=== PATIENT | female | born 1975 | race Caucasian/White ===

== ENCOUNTER 2020-12-19 20:01 | Emergency (ER) | payer BC ==
[2020-12-19 20:36] LABS: #Basophils 0.1 thou/uL (0.0-0.2); #Eosinphils 0.2 thou/uL (0.0-0.7); #Lymphocytes 3.3 thou/uL (1.20-3.40); #Monocytes 0.4 thou/uL (0.11-0.59); #Neutrophils 3.3 thou/uL (1.40-6.50); %Basophils 1.7 % (0.0-1.0); %Eosinophils 2.7 % (0.0-10.0); %Lymphocytes 44.4 % (21.0-51.0); %Monocytes 5.7 % (0.0-10.0); %Neutrophils 45.4 % (42.0-75.0); Mean Corpuscular HGB CONC 33.9 g/dL (32.0-36.0); Mean Corpuscular Hemoglobin 30.9 pg (27.0-31.0); Mean Corpuscular Volume 91.2 fL (78.0-98.0); Mean Platelet Volume 6.9 fL (7.4-10.4); Platelet Count 331 thou/uL (130-400); RBC Distribution Width 11.8 % (11.5-14.5); Red Blood Cell (RBC) Count 4.54 mill/uL (4.20-5.40); White Blood Cell (WBC) Count 7.3 thou/uL (4.8-10.8)
== END 2020-12-19 22:02 | disposition home or self-care (01) ==
LOC: ERS 20:01
DX: N93.8 Other specified abnormal uterine and vaginal bleeding (principal); Z79.899 Other long term (current) drug therapy; E03.9 Hypothyroidism, unspecified
CPT/HCPCS: 36415; 85025; 86850; 86900; 86901; 99284

== ENCOUNTER 2021-07-12 11:36 | Inpatient (IN) | payer BC ==
[2021-07-12 12:26] LABS: #Basophils 0.1 thou/uL (0.0-0.2); #Eosinphils 0.1 thou/uL (0.0-0.7); #Lymphocytes 1.9 thou/uL (1.20-3.40); #Monocytes 0.5 thou/uL (0.11-0.59); #Neutrophils 3.8 thou/uL (1.40-6.50); %Eosinophils 2.2 % (0.0-10.0); %Lymphocytes 29.5 % (21.0-51.0); %Monocytes 7.4 % (0.0-10.0); %Neutrophils 59.9 % (42.0-75.0); Hemoglobin 13.9 g/dL (12.0-16.0); Mean Corpuscular HGB CONC 35.8 g/dL (32.0-36.0); Mean Corpuscular Hemoglobin 32.8 pg (27.0-31.0); Mean Corpuscular Volume 91.6 fL (78.0-98.0); Mean Platelet Volume 7.2 fL (7.4-10.4); Platelet Count 337 thou/uL (130-400); RBC Distribution Width 11.3 % (11.5-14.5); Red Blood Cell (RBC) Count 4.26 mill/uL (4.20-5.40); White Blood Cell (WBC) Count 6.4 thou/uL (4.8-10.8)
[2021-07-12 12:46] LABS: ALT (SGPT) 47 U/L (8-55); AST (SGOT) 42 U/L (5-34); Albumin 4.2 g/dL (3.5-5.0); Alkaline Phosphatase 44 U/L (40-110); Anion Gap 13 mmol/L (10-20); BUN (Urea Nitrogen) 14 mg/dL (7.0-18.7); Bilirubin, Total 0.5 mg/dL (0.2-1.2); Calc. Creatinine Clearance 0 mL/min (70-130); Calcium 9.2 mg/dL (7.8-10.44); Carbon Dioxide 23 mmol/L (22-29); Chloride 106 mmol/L (98-107); Globulin 2.9 g/dL (2.4-3.5); Glucose 93 mg/dL (70-105); Potassium 4.3 mmol/L (3.5-5.1); Protein, Total 7.1 g/dL (6.0-8.3); Sodium 138 mmol/L (136-145)
[2021-07-12] MEDS ORDERED: ADMIXTURE FEE CHEMO IVPB SCH (15:15)
[2021-07-12] MEDS ORDERED: OCTAGAM IVPB SCH (15:15)
[2021-07-12] MEDS ORDERED: Acetaminophen 325 MG TAB PO PRN (15:31)
[2021-07-12 18:12] VITALS: BMI 33.0
[2021-07-12] MEDS: traMADol HCl 50 MG TAB PO SCH (18:28)
[2021-07-12] MEDS: Enoxaparin Sodium 40 MG/0.4 ML SYRINGE SC SCH (20:03)
[2021-07-12] MEDS: Ibuprofen 600 MG TAB PO PRN (22:29)
[2021-07-12 22:41] LABS: SARS-CoV-2 PCR by NAA Not Detected (NotDetected)
[2021-07-13 05:48] LABS: #Eosinphils 0.2 thou/uL (0.0-0.7); #Lymphocytes 1.4 thou/uL (1.20-3.40); #Monocytes 0.3 thou/uL (0.11-0.59); #Neutrophils 2.9 thou/uL (1.40-6.50); %Lymphocytes 28.7 % (21.0-51.0); %Monocytes 6.2 % (0.0-10.0); %Neutrophils 59.1 % (42.0-75.0); Hemoglobin 13.2 g/dL (12.0-16.0); Mean Corpuscular HGB CONC 37.5 g/dL (32.0-36.0); Mean Corpuscular Hemoglobin 34.3 pg (27.0-31.0); Mean Corpuscular Volume 91.6 fL (78.0-98.0); Mean Platelet Volume 6.7 fL (7.4-10.4); Platelet Count 273 thou/uL (130-400); RBC Distribution Width 11.3 % (11.5-14.5); Red Blood Cell (RBC) Count 3.84 mill/uL (4.20-5.40); White Blood Cell (WBC) Count 4.9 thou/uL (4.8-10.8)
[2021-07-13] MEDS ORDERED: ALPRAZolam 0.25 MG TAB PO PRN (06:03)
[2021-07-13 06:07] LABS: ALT (SGPT) 42 U/L (8-55); AST (SGOT) 32 U/L (5-34); Albumin 3.6 g/dL (3.5-5.0); Alkaline Phosphatase 38 U/L (40-110); Anion Gap 10 mmol/L (10-20); BUN (Urea Nitrogen) 10 mg/dL (7.0-18.7); Bilirubin, Total 0.6 mg/dL (0.2-1.2); Calc. Creatinine Clearance 119 mL/min (70-130); Calcium 9.1 mg/dL (7.8-10.44); Carbon Dioxide 26 mmol/L (22-29); Chloride 104 mmol/L (98-107); Globulin 4.4 g/dL (2.4-3.5); Glucose 98 mg/dL (70-105); Potassium 4.3 mmol/L (3.5-5.1); Sodium 136 mmol/L (136-145)
[2021-07-13] MEDS: Valsartan 80 MG TAB PO SCH (08:08)
[2021-07-13] MEDS: traMADol HCl 50 MG TAB PO SCH ×2 (08:09→20:32)
[2021-07-13] MEDS: Hydrochlorothiazide 25 MG TAB PO SCH (08:09)
[2021-07-13] MEDS: Ibuprofen 600 MG TAB PO PRN (08:10)
[2021-07-13] MEDS ORDERED: Thyroid 60 MG TAB PO SCH (09:00)
[2021-07-13] MEDS ORDERED: FLU VACC QS2021-22(6MOS UP)/PF 60 MCG/0.5 ML SYRINGE IM ONE (09:00)
[2021-07-13] MEDS ORDERED: Magnevist 469MG/ML 20 ML VIAL ONE (10:00)
[2021-07-13] MEDS: Gabapentin 100 MG CAP PO SCH ×2 (14:38→20:33)
[2021-07-13] MEDS: OCTAGAM 10% 20 GM, OCTAGAM 10% 10 GM in Premix Bag 1 BAG IVPB SCH (17:34)
[2021-07-13] MEDS: Enoxaparin Sodium 40 MG/0.4 ML SYRINGE SC SCH (20:31)
[2021-07-13] MEDS: Ibuprofen 600 MG TAB PO SCH (20:33)
[2021-07-14] MEDS ORDERED: Ibuprofen 200 MG TAB PO SCH (02:45)
[2021-07-14] MEDS: Thyroid 60 MG TAB PO SCH (05:10)
[2021-07-14] MEDS: Gabapentin 100 MG CAP PO SCH ×2 (08:22→14:20)
[2021-07-14] MEDS: Valsartan 80 MG TAB PO SCH (08:22)
[2021-07-14] MEDS: traMADol HCl 50 MG TAB PO SCH ×2 (08:26→20:27)
[2021-07-14] MEDS: Hydrochlorothiazide 25 MG TAB PO SCH (08:26)
[2021-07-14] MEDS: Ibuprofen 600 MG TAB PO SCH ×2 (08:37→20:29)
[2021-07-14] MEDS ORDERED: Magnevist 469MG/ML 20 ML VIAL ONE (10:15)
[2021-07-14] MEDS ORDERED: hydrALAZINE 20 MG/ML VIAL SLOW IVP PRN (15:31)
[2021-07-14] MEDS: OCTAGAM 10% 20 GM, OCTAGAM 10% 10 GM in Premix Bag 1 BAG IVPB SCH (17:16)
[2021-07-14] MEDS: HYDROcodone/Acetaminophen 5/325 mg Tablet PO PRN ×2 (17:55→23:48)
[2021-07-14] MEDS ORDERED: Gabapentin 100 MG CAP PO SCH (18:00)
[2021-07-14] MEDS ORDERED: Gabapentin 300 MG CAP PO SCH (18:00)
[2021-07-14] MEDS: Enoxaparin Sodium 40 MG/0.4 ML SYRINGE SC SCH (20:27)
[2021-07-14] MEDS: Gabapentin 300 MG CAP PO SCH (20:30)
[2021-07-15] MEDS: HYDROcodone/Acetaminophen 5/325 mg Tablet PO PRN ×2 (05:57→12:06)
[2021-07-15] MEDS: Thyroid 60 MG TAB PO SCH (05:58)
[2021-07-15 07:46] VITALS: BP 142/94; TEMP 98
[2021-07-15] MEDS: Ibuprofen 600 MG TAB PO SCH (08:39)
[2021-07-15] MEDS: Valsartan 80 MG TAB PO SCH (08:40)
[2021-07-15] MEDS: traMADol HCl 50 MG TAB PO SCH (08:40)
[2021-07-15] MEDS: Hydrochlorothiazide 25 MG TAB PO SCH (08:40)
[2021-07-15] MEDS: Gabapentin 300 MG CAP PO SCH ×2 (08:41→12:53)
[2021-07-17 12:38] LABS: Lyme IgG/IgM AB <0.91 ISR (0.00-0.90)
== END 2021-07-15 13:02 | disposition home or self-care (01) | DRG 60 ==
LOC: ERS 11:36 → 3SE 16:01 → OBSVTOIN 07-13 17:47
PROVIDERS: ADMIT Family Medicine; ATTEND Family Medicine
PROC: 30233S1 Transfusion of Nonautologous Globulin into Peripheral Vein, Percutaneous Approach (ICD-10-PCS; principal; 2021-07-12)
DX: G35 Multiple sclerosis (principal); Z20.822 Contact with and (suspected) exposure to COVID-19; I10 Essential (primary) hypertension; E03.9 Hypothyroidism, unspecified; F41.9 Anxiety disorder, unspecified; Z28.21 Immunization not carried out because of patient refusal; Z79.899 Other long term (current) drug therapy; Z79.890 Hormone replacement therapy; Z82.49 Family history of ischemic heart disease and other diseases of the circulatory system; Z86.16 Personal history of COVID-19; Z87.891 Personal history of nicotine dependence
CPT/HCPCS: 36415; 70553; 72158; 80053; 85025; 86618; 93005; 94760; 96365; 96372; A9579; G0378; J0360; J1568; J1650; U0003; U0005

== ENCOUNTER 2024-07-27 17:40 | Inpatient (IN) | payer BC ==
[2024-07-27] MEDS ORDERED: Ondansetron ODT 4 MG TAB PO PRN (20:47)
[2024-07-27] MEDS ORDERED: Acetaminophen 650 MG Suppository PR PRN (20:47)
[2024-07-27] MEDS ORDERED: Ondansetron PF 4 MG/2 ML Vial IVP PRN (20:47)
[2024-07-27 21:36] LABS: #Basophils Less than 0.03 10x3/uL (0.0-0.2); #Eosinophils Less than 0.03 10x3/uL (0.0-0.7); %Basophils 0.2 % (0.0-1.0); %Monocytes 0.4 % (0.0-10.0); %Neutrophils 91.5 % (42.0-75.0); Hematocrit 39.2 % (36.0-47.0); Hemoglobin 13.9 g/dL (12.0-16.0); Mean Corpuscular HGB CONC 35.5 g/dL (32.0-36.0); Mean Corpuscular Hemoglobin 32.3 pg (27.0-31.0); Mean Platelet Volume 8.8 fL (7.4-10.4); Platelet Count 354 10x3/uL (130-400); RBC Distribution Width 12.4 % (11.5-14.5); Red Blood Cell (RBC) Count 4.31 mill/uL (4.20-5.40)
[2024-07-27 21:51] LABS: ALT (SGPT) 28 U/L (8-55); AST (SGOT) 26 U/L (5-34); Albumin 4.3 g/dL (3.5-5.0); Alkaline Phosphatase 39 U/L (40-110); Anion Gap 17 mmol/L (10-20); BUN (Urea Nitrogen) 16 mg/dL (9.8-20.1); Bilirubin, Total 1.1 mg/dL (0.2-1.2); Calc. Creatinine Clearance 99 mL/min (70-130); Calcium 9.5 mg/dL (7.8-10.44); Carbon Dioxide 23 mmol/L (22-29); Chloride 100 mmol/L (98-107); Estimated GFR 84; Globulin 3.6 g/dL (2.4-3.5); Glucose 149 mg/dL (70-105); Potassium 3.6 mmol/L (3.5-5.1); Protein, Total 7.9 g/dL (6.0-8.3); Sodium 136 mmol/L (136-145)
[2024-07-27] MEDS: Famotidine 20 MG TAB PO SCH (22:03)
[2024-07-27] MEDS: Dexamethasone 4 mg/ml Vial SLOW IVP SCH (22:03)
[2024-07-27] MEDS: ALPRAZolam 0.25 MG TAB PO PRN (22:45)
[2024-07-27] MEDS: PROGESTERONE PO SCH (23:21)
[2024-07-28] MEDS: Famotidine/PF 20 mg/2ml Vial SLOW IVP SCH (00:30)
[2024-07-28] MEDS: Acetaminophen 325 MG TAB PO SCH (00:30)
[2024-07-28 04:01] LABS: Anion Gap 16 mmol/L (10-20); BUN (Urea Nitrogen) 15 mg/dL (9.8-20.1); Calc. Creatinine Clearance 103 mL/min (70-130); Carbon Dioxide 23 mmol/L (22-29); Chloride 100 mmol/L (98-107); Estimated GFR 88; Glucose 151 mg/dL (70-105); Potassium 3.6 mmol/L (3.5-5.1); Sodium 135 mmol/L (136-145)
[2024-07-28] MEDS: Enoxaparin 40 MG (0.4 mL) SYRINGE SC SCH (10:53)
[2024-07-28] MEDS: Thyroid 60 MG TAB PO SCH (10:55)
[2024-07-28] MEDS: IMMUNE GLOBULIN 40 GM/400 ML IVPB SCH (14:53)
[2024-07-28 15:35] VITALS: BMI 30.1
[2024-07-28] MEDS: IMMUNE GLOBULIN 20 GM/200 ML IVPB SCH (16:14)
[2024-07-28] MEDS: [UNRECOGNIZED DRUG - MIXTURE] PO SCH (22:32)
[2024-07-29 04:32] LABS: Mean Corpuscular Hemoglobin 32.6 pg (27.0-31.0)
[2024-07-29 04:50] LABS: Anion Gap 13 mmol/L (10-20); BUN (Urea Nitrogen) 24 mg/dL (9.8-20.1); Calc. Creatinine Clearance 97 mL/min (70-130); Calcium 8.5 mg/dL (7.8-10.44); Carbon Dioxide 24 mmol/L (22-29); Chloride 102 mmol/L (98-107); Estimated GFR 78; Glucose 116 mg/dL (70-105); Potassium 3.2 mmol/L (3.5-5.1); Sodium 136 mmol/L (136-145)
[2024-07-29 05:04] LABS: Hematocrit 33.7 % (36.0-47.0); Hemoglobin 11.9 g/dL (12.0-16.0); Mean Corpuscular HGB CONC 35.3 g/dL (32.0-36.0); Mean Corpuscular Volume 92.3 fL (78.0-98.0); Mean Platelet Volume 9.5 fL (7.4-10.4); Platelet Count 306 10x3/uL (130-400); RBC Distribution Width 12.5 % (11.5-14.5); Red Blood Cell (RBC) Count 3.65 mill/uL (4.20-5.40)
[2024-07-29] MEDS ORDERED: Thyroid 60 MG TAB PO SCH (06:00)
[2024-07-29] MEDS: [UNRECOGNIZED DRUG - MIXTURE] PO SCH (06:09)
[2024-07-29] MEDS ORDERED: Non-Formulary Item 1 EACH (Valsartan/Hydrochlorothiazide [Valsartan-Hctz 160-25 Mg Tab] 1 PO SCH (09:00)
[2024-07-29] MEDS: Valsartan 80 MG TAB PO SCH (09:27)
[2024-07-29] MEDS: Potassium Chloride 20 MEQ TAB PO SCH (09:27)
[2024-07-29] MEDS: Hydrochlorothiazide 25 MG TAB PO SCH (09:28)
[2024-07-30 05:33] LABS: Hematocrit 33.5 % (36.0-47.0); Hemoglobin 11.5 g/dL (12.0-16.0); Mean Corpuscular HGB CONC 34.3 g/dL (32.0-36.0); Mean Corpuscular Hemoglobin 32.2 pg (27.0-31.0); Mean Corpuscular Volume 93.8 fL (78.0-98.0); Mean Platelet Volume 9.8 fL (7.4-10.4); Platelet Count 274 10x3/uL (130-400); RBC Distribution Width 12.8 % (11.5-14.5); Red Blood Cell (RBC) Count 3.57 mill/uL (4.20-5.40)
[2024-07-30 05:51] LABS: Anion Gap 10 mmol/L (10-20); BUN (Urea Nitrogen) 16 mg/dL (9.8-20.1); Calc. Creatinine Clearance 117 mL/min (70-130); Calcium 7.4 mg/dL (7.8-10.44); Carbon Dioxide 22 mmol/L (22-29); Chloride 107 mmol/L (98-107); Estimated GFR 98; Glucose 95 mg/dL (70-105); Potassium 3.2 mmol/L (3.5-5.1); Sodium 136 mmol/L (136-145)
[2024-07-30] MEDS: Magnesium Oxide 400 MG TAB PO SCH (08:56)
[2024-07-30] MEDS: Potassium Chloride 20 MEQ TAB PO SCH (08:56)
[2024-07-30] MEDS: Sodium Chloride 0.9% 500 ML IV SCH (15:56)
[2024-07-31 00:07] VITALS: TEMP 98.1
[2024-07-31 04:28] LABS: Hematocrit 34.1 % (36.0-47.0); Hemoglobin 11.6 g/dL (12.0-16.0); Mean Corpuscular Hemoglobin 31.9 pg (27.0-31.0); Mean Corpuscular Volume 93.7 fL (78.0-98.0); Mean Platelet Volume 9.4 fL (7.4-10.4); Platelet Count 255 10x3/uL (130-400); RBC Distribution Width 12.6 % (11.5-14.5); Red Blood Cell (RBC) Count 3.64 mill/uL (4.20-5.40)
[2024-07-31 05:10] LABS: Anion Gap 11 mmol/L (10-20); BUN (Urea Nitrogen) 11 mg/dL (9.8-20.1); Calc. Creatinine Clearance 123 mL/min (70-130); Calcium 7.9 mg/dL (7.8-10.44); Carbon Dioxide 21 mmol/L (22-29); Chloride 108 mmol/L (98-107); Estimated GFR 105; Glucose 97 mg/dL (70-105); Magnesium 1.8 mg/dL (1.6-2.6); Potassium 3.7 mmol/L (3.5-5.1); Sodium 136 mmol/L (136-145)
[2024-07-31 07:50] VITALS: BP 121/84
== END 2024-07-31 10:18 | disposition home or self-care (01) | DRG 96 ==
LOC: 2SE 19:17 → OBSVTOIN 20:47
PROVIDERS: ADMIT Hospitalist; ATTEND Internal Medicine
DX: G61.0 Guillain-Barre syndrome (principal); I10 Essential (primary) hypertension; M51.26 Other intervertebral disc displacement, lumbar region; E03.9 Hypothyroidism, unspecified; E87.6 Hypokalemia; Z90.89 Acquired absence of other organs; Z98.890 Other specified postprocedural states; Z79.899 Other long term (current) drug therapy
CPT/HCPCS: 36415; 72148; 80048; 80053; 83735; 85025; 85027; J1100; J1459; J1650; J7030